=== PATIENT | female | born 1945 | race Caucasian/White ===

== ENCOUNTER 2024-03-25 09:22 | Emergency (ER) | payer MEDICARE, SELFPAY ==
[2024-03-25 09:29] VITALS: BP 134/89; PULSE 78; RESP 18; TEMP 36.9; O2SAT 96; BMI 21.9
--- NOTE | 2024-03-25 09:35 | ED_ITS ---
HPI - General Adult General Date Seen: 03/25/24 Chief complaint: Abdominal Pain Stated complaint: HAD KIDNEY STONE, HAVING SIMILAR SYMPTOMS Time Seen by Provider: 03/25/24 09:34 History of Present Illness HPI narrative: 78-year-old female with a history of breast cancer (lumpectomy 2014), hypertension, hyperlipidemia, hyperparathyroidism, thyroid nodule, GERD. Her medical record indicates that she is new to the [facility]. She had an appointment with Dr. Mayo last month to establish care and to discuss her intermittent, recurrent abdominal pain. She has a past medical history which includes a kidney stone which was removed by a urologist through the [facility] system about 2 or 3 years ago in 2019 or 2020. She apparently had a fairly large stone that would not pass and had multiple other smaller stones. She was told that her stones were calcium oxalate stones and that she should stick to a low oxalate diet to prevent forming new stones. she also notes that she had a large cyst on 1 of her kidneys for which her urologist did not recommend any intervention. I looked in [facility] through the [facility] link and there is no records from her [facility] To document the size or location of pollo stone. She notes that a few weeks ago she was having some upper abdominal pain in the central upper abdomen the felt probably like heartburn. For the past week or so she has had a different pain that is in the right flank and radiates around into the right side of her abdomen. The pain that is been coming and going for the past week is reminiscent of her previous kidney stone. She also notes that on Thursday she had an episode where she got very dizzy and presyncopal and almost fainted. This was not directly associated with a bad flare of pain. She was feeling a little bit weak on Thursday and yesterday on . Today she had another episode of weakness and other episode of pain. No clear pattern to the pain. It comes and goes. Here in the ER she says she is having minimal ongoing pain and does not need any pain medicine right now. She is not nauseous. No vomiting but she has had a bit of a poor appetite. No fever. Urination has been normal. She has been watching for hematuria and has not noticed any. No dysuria. Bowel movements normal. Related Data Home Medications ?Medication ?Instructions ?Recorded ?Confirmed cholecalciferol (vitamin D3) 25 25 mcg PO QDAY 03/01/24 03/25/24 mcg (1,000 unit) capsule lisinopril 5 mg tablet 5 mg PO QDAY 03/01/24 03/25/24 rosuvastatin 5 mg tablet 5 mg PO QDAY 03/01/24 03/25/24 omeprazole 20 mg capsule,delayed 20 mg PO DAILY 03/25/24 03/25/24 release Allergies Allergy/AdvReac Type Severity Reaction Status Date / Time Sulfa (Sulfonamide Allergy Severe Hives Verified 03/25/24 09:28 Antibiotics) [facility] Medical History (Updated 03/25/24 @ 11:57 by Guy Nieto MD) Osteoporosis ?M81.0 - Age-related osteoporosis without current pathological fracture (ICD- 10) GERD (gastroesophageal reflux disease) ?K21.9 - Gastro-esophageal reflux disease without esophagitis (ICD-10) Thyroid nodule ?E04.1 - Nontoxic single thyroid nodule (ICD-10) Hyperparathyroidism ?E21.3 - Hyperparathyroidism, unspecified (ICD-10) History of skin cancer ?Z85.828 - Personal history of other malignant neoplasm of skin (ICD-10) Migraines ?G43.909 - Migraine, unspecified, not intractable, without status migrainosus (ICD-10) Allergic rhinitis ?J30.9 - Allergic rhinitis, unspecified (ICD-10) Environmental allergies ?Z91.09 - Other allergy status, other than to drugs and biological substances (ICD-10) History of kidney stones ?Z87.442 - Personal history of urinary calculi (ICD-10) Mixed hyperlipidemia ?E78.2 - Mixed hyperlipidemia (ICD-10) Primary hypertension ?I10 - Essential (primary) hypertension (ICD-10) History of breast cancer ?Z85.3 - Personal history of malignant neoplasm of breast (ICD-10) Surgical History (Updated 03/14/24 @ 00:37 by Thuan Mayo MD) S/P ureteral stent placement ?Z96.0 - Presence of urogenital implants (ICD-10) History of lumpectomy ?Z98.890 - Other specified postprocedural states (ICD-10) Family History (Updated 03/14/24 @ 00:28 by Thuan Mayo MD) Mother Lung cancer Colon cancer Sister Pancreatic cancer Social History (Updated 03/14/24 @ 00:27 by Thuan Mayo MD) Narrative: , two kids, 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, nonsmoker, social ETOH What is your current living situation?: I presently have a place to live Problems where you live: no known problems In the past 12 months, utilities in danger of being shut off: no In the past 12 mos, have been you worried that your food would run out before you had money to buy more?: never true In the past 12 mos, the food you bought just didn't last and you didn't have money to buy more?: never true Smoking Status: Never smoker How often do you have a drink containing alcohol: never AUDIT-C Alcohol total score: 0 Non-prescribed substance use: denies use How often does anyone, including family, friends and others, physically hurt you : never How often does anyone, including family, friends and others, insult or talk down to you: never How often does anyone, including family, friends and others, threaten you with harm: never How often does anyone, including family, friends and others, scream or curse at you: never Exam Narrative: Exam Narrative: Constitutional: Appears well-developed and well-nourished. Alert. Conversant. Non toxic. HENT: Head: Atraumatic. Nose: Nose normal. Mouth/Throat: Oral mucosa is clear and moist. no trismus. Pharynx normal. Tonsils symmetric. No tonsillar enlargement, erythema, or exudate. Eyes: Conjunctivae normal. EOM normal. Pupils equal, round, and reactive to light. No scleral icterus. Neck: Normal range of motion. Neck supple. No tracheal deviation present. Cardiovascular: Normal rate, regular rhythm. No gallop. No friction rub. No murmur heard. Symmetric radial artery pulses Pulmonary/Chest: Effort normal. No stridor. No respiratory distress. No wheezes. No rales. No rhonchi . No tenderness. Abdominal: Soft. Bowel sounds normal. No distension. No mass. Mild right CVA tenderness. no anterior abdominal tenderness. No pulsatile mass. No rebound. No guarding. Musculoskeletal: RUE: Normal range of motion. No tenderness. No deformity LUE: Normal range of motion. No tenderness. No deformity RLE: Normal range of motion. No edema. No tenderness. No deformity LLE: Normal range of motion. No edema. No tenderness. No deformity Neurological: Alert and oriented to person, place, and time. Normal strength. CN II-VII intact. No sensory deficit. GCS eye subscore is 4. GCS verbal subscore is 5. GCS motor subscore is 6. Normal coordination Skin: Skin is warm and dry. No rash noted. No pallor. Normal capillary refill. Psychiatric: Normal mood. Normal affect. Const: Vital Signs, click to edit/add: Vital Signs - 24 hr 03/25/24 09:29 03/25/24 11:45 Temperature 98.4 F Pulse Rate 68 Pulse Rate [Pulse Oximeter] 78 Respiratory Rate 18 14 Blood Pressure 140/77 H Blood Pressure [Le ft Upper Arm] 134/89 Pulse Oximetry 96 98 Oxygen Delivery Me thod Room Air Course Course ED Course: Recheck-remained stable. Not much pain at the moment. Reevaluation(s) Reevaluation #1: Recheck-discussed further results with the patient and her . Discussed plan for outpatient follow-up. Vital Signs Vital signs: Initial Vital Signs Temperature 98.4 F 03/25/24 09:29 Temperature Source Temporal Artery Scan 03/25/24 09:29 Pulse Rate 78 03/25/24 09:29 Pulse Rhythm Regular 03/25/24 09:29 Respiratory Rate 18 03/25/24 09:29 Blood Pressure 134/89 03/25/24 09:29 Blood Pressure Mean 104 03/25/24 09:29 Blood Pressure Position Sitting 03/25/24 09:29 Pulse Oximetry 96 03/25/24 09:29 Oxygen Delivery Method Room Air 03/25/24 09:29 Vital Signs Temperature 98.4 F 03/25/24 09:29 Pulse Rate 78 03/25/24 09:29 Respiratory Rate 18 03/25/24 09:29 Blood Pressure 134/89 03/25/24 09:29 Pulse Oximetry 96 03/25/24 09:29 Oxygen Delivery Method Room Air 03/25/24 09:29 Temperature 98.4 F 03/25/24 09:29 Pulse Rate 68 03/25/24 11:45 Respiratory Rate 14 03/25/24 11:45 Blood Pressure 140/77 H 03/25/24 11:45 Pulse Oximetry 98 03/25/24 11:45 Oxygen Delivery Method Room Air 03/25/24 09:29 Medical Decision Making MDM Narrative Medical decision making narrative: This patient presents with right flank and abdominal pain off and on for several days and also some lightheadedness.. Differential Diagnosis considered includes: Ureterolithiasis, UTI, pyelonephritis, AAA, colitis, diverticulitis, volvulus, appendicitis, cholecystitis, right-sided colitis, obstruction, among others. At this point, the evaluation does not show any sign of obstructing kidney stone or hydronephrosis to explain patient's symptoms. There are no signs that this is a urinary infection. There is no visible gallstones on her CT scan and no signs of cholecystitis. LFTs and lipase and white count are normal. The patient's pain is minimal in ED, and she is politely declining offered pain meds. The p atient is hemodynamically stable in ED. I think the patient is safe for discharge. Radiology does mention a ?moderate stool burden? on the CT scan with a fair amount of stool in her right (ascending)colon. It is possible this could be a source for pain. She also does have a fairly large cyst on that right kidney. It was noted before. I do not have previous imaging available for measurement comparison but if it is enlarging it could be a source for pain. The plan is discharge to home with recheck by primary care physician or her urologist through the [facility] system within the next 5-7 days. She will start natural remedies for constipation. She typically can manage this with vegetables and high-fiber diet and does not want any medications. They will return to the ED right away if symptoms worsen (e.g Return immediately for fevers greater than 102, increasing pain, other new symptoms develop). Abdominal pain precautions for home. The patient's questions were answered. . Lab Data Labs: Lab Results 03/25/24 03/25/24 Range/Units 10:12 11:15 WBC 6.47 (4.50-11.00) K/uL RBC 5.62 H (4.00-5.20) m/uL Hgb 16.2 H (12.0-16.0) gm/dL Hct 49.7 (33.0-51.0) % MCV 88 (80-100) fL MCH 29 (26-34) pg MCHC 33 (32-36) gm/dL RDW Coeff of Cierra 13.8 (11.5-15.5) % Plt Count 212 (140-440) K/uL Neut % (Auto) 72.7 H (42.0-72.0) % Lymph % (Auto) 17.5 L (20-44) % [place] % (Auto) 7.9 (0.0-11.0) % Eos % (Auto) 0.9 (0.0-7.0) % Baso % (Auto) 0.8 (0.0-3.0) % Neut # (Auto) 4.70 (1.7-7.0) K/uL Lymph # (Auto) 1.10 (0.90-2.90) K/uL [place] # (Auto) 0.50 (0.00-0.90) K/UL Eos # (Auto) 0.06 (0.00-0.50) K/uL Baso # (Auto) 0.05 (0.00-0.30) K/uL Abs Immat Gran (auto) 0.01 (0.00-0.30) K/uL Imm/Tot Granulo (auto) 0.2 % Sodium 138 (135-149) mmol/L Potassium 4.2 (3.6-5.1) mmol/L Chloride 102 (96-114) mmol/L Carbon Dioxide 28 (20-32) mmol/L Anion Gap 8 (7-15) mEq/L BUN 20 (7-30) mg/dL Creatinine 1.1 (0.5-1.5) mg/dL Estimated Creat Clear 33.87 Estimated GFR 52 ml/min Glucose 86 (60-115) mg/dL Calcium 10.0 (8.4-10.6) mg/dL Total Bilirubin 0.7 (0.1-1.5) mg/dL AST 28 (12-35) U/L ALT 23 (4-35) U/L Alkaline Phosphatase 70 (40-150) U/L Total Protein 6.9 (6.0-8.3) g/dL Albumin 4.2 (3.3-5.0) g/dL Lipase 296 (23-300) U/L Urine Color Yellow (Yellow) Urine Appearance Clear (Clear) Urine pH 7.0 (5.0-8.5) Ur Specific [place] 1.020 (1.000-1.030) Urine Protein Negative (Negative) Urine Glucose (UA) Negative (Negative) Urine Ketones Negative (Negative) Urine Blood Trace-intact A (Negative) Urine Nitrite Negative (Negative) Urine Bilirubin Negative (Negative) Urine Urobilinogen 0.2 (0.2-1.0) Ur Leukocyte Esterase 1+ A (Negative) Urine RBC 0-2 (0-2) Urine WBC 2-5 (0-5) Ur Squamous Epith Cells Moderate A (None-Few) Urine Bacteria Few A (None) Imaging Data CT scan - abdomen: Attestation: I have reviewed the pertinent imaging results. Radiologist's impression: Impression: 1. 10.2 x 8.2 centimeter anterior right renal cyst. 1.6 centimeter left renal cyst. 2. No hydronephrosis. Bilateral nonobstructing renal calculi measuring up to 4 millimeter on the right and 3 millimeter on the left. 3. Moderate stool burden. Small hiatal hernia. No evidence of bowel obstruction. 4. Trace pericardial effusion. Discharge Plan Discharge Clinical Impression: Acute right flank pain, Cyst of right kidney, Acute constipation Patient Disposition: Home, Self-Care Condition: Stable Instructions: Constipation (DC), Abdominal Pain (ED), Kidney Cyst (ED) Additional Instructions: As we discussed, there is no signs of a kidney stone or a kidney infection causing her pain at this time. Do not see any sign of gallstones on her CT scan today. Your lab work is reassuring. The cause of your pain is not clear at this time. It is possible that the pain could be related to constipation. Please you sure normal remedies for helping manage constipation. Monitor bowel patterns and make sure having regular stools for the next several days. It is also possible that your pain is related to the large cyst on your right kidney. Please follow-up with your primary care provider within the next 1-3 days and your urologist through the [facility] system within the next 1-2 weeks to recheck. If you have any worsening symptoms such as worsening pain, nausea vomiting, fever, more lightheadedness, or any other problems, return to the emergency department immediately. Prescriptions: No Action lisinopril 5 mg tablet 5 mg PO QDAY rosuvastatin 5 mg tablet 5 mg PO QDAY cholecalciferol (vitamin D3) 25 mcg (1,000 unit) capsule 25 mcg PO QDAY omeprazole 20 mg capsule,delayed release(DR/EC) 20 mg PO DAILY Follow Up/Referrals: Provider,Not a Local [Primary Care Provider] - Stand Alone Forms: Vascular Therapies Info Instructions
--- NOTE | 2024-03-25 10:00 | CRLHL7_ITS ---
For Patients: As a result of the Century Cures Act, medical imaging exams and procedure reports are released immediately into your electronic medical record. You may view this report before your referring provider. If you have questions, please contact your health care provider. Indication: RIGHT FLANK PAIN PRIMARILY, BUT PAIN ALSO MOVES AROUND ABDOMEN Technique: Noncontrast CT of the abdomen and pelvis was obtained. Please note that all CT scans at this facility use dose modulation, iterative reconstruction, and/or weight-based dosing when appropriate to reduce radiation dose to as low as reasonably achievable. Comparison: None. Findings: Lower thorax: Trace pericardial effusion. Liver and biliary tree: Subcentimeter hypoattenuating lesions are too small to characterize and are favored to represent cysts. Gallbladder: Normal. Spleen: Normal noncontrast appearance. Pancreas: Normal noncontrast appearance. Adrenal glands: Normal noncontrast appearance. Kidneys and ureters: 10.2 x 8.2 centimeter anterior right renal cyst (2/53). 1.6 centimeter left renal cyst (2/44). No hydronephrosis. Bilateral nonobstructing renal calculi measuring up to 4 millimeter on the right (2/70) and 3 millimeter on the left (2/57). Gastrointestinal tract: Mild sigmoid colonic diverticulosis without CT evidence of acute diverticulitis. Moderate stool burden. No evidence of acute appendicitis. Small hiatal hernia. No evidence of bowel obstruction. Peritoneal cavity: Normal. Bladder: Normal. Pelvic organs: Normal. Vasculature: Moderate calcification. Lymph nodes: Normal. Abdominal wall: Normal. Musculoskeletal: Mild degenerative changes of the bilateral hips. Moderate degenerative changes of the visualized spine. Osteopenia. Impression: 1. 10.2 x 8.2 centimeter anterior right renal cyst. 1.6 centimeter left renal cyst. 2. No hydronephrosis. Bilateral nonobstructing renal calculi measuring up to 4 millimeter on the right and 3 millimeter on the left. 3. Moderate stool burden. Small hiatal hernia. No evidence of bowel obstruction. 4. Trace pericardial effusion. Please note that all CT scans at this facility use dose modulation, iterative reconstruction, and/or weight-based dosing when appropriate to reduce radiation dose to as low as reasonably achievable. Dictated by Emeka Singer MD @ 03/25/2024 11:00:28 AM (Electronically Signed)
[2024-03-25 10:25] LABS: Basophils Absolute Auto 0.05 K/uL (0.00-0.30); Basophils Percent Auto 0.8 % (0.0-3.0); Eosinophils Absolute Auto 0.06 K/uL (0.00-0.50); Eosinophils Percent Auto 0.9 % (0.0-7.0); Hematocrit 49.7 % (33.0-51.0); Hemoglobin* 16.2 gm/dL (12.0-16.0); Immature Granulocytes Abs Auto 0.01 K/uL (0.00-0.30); Immature Granulocytes Pct Auto 0.2 %; Lymphocytes Percent Auto 17.5 % (20-44); Mean Corpuscular HGB Conc 33 gm/dL (32-36); Mean Corpuscular Hemoglobin 29 pg (26-34); Mean Corpuscular Volume 88 fL (80-100); Monocytes Percent Auto 7.9 % (0.0-11.0); Neutrophils Percent Auto 72.7 % (42.0-72.0); Platelet Count* 212 K/uL (140-440); RDW Coefficient of Variation % 13.8 % (11.5-15.5); Red Blood Count 5.62 m/uL (4.00-5.20); White Blood Count* 6.47 K/uL (4.50-11.00)
[2024-03-25 10:27] LABS: Slide Review Reflex No
[2024-03-25 10:48] LABS: Albumin* 4.2 g/dL (3.3-5.0)
[2024-03-25 10:49] LABS: Chloride* 102 mmol/L (96-114); Potassium* 4.2 mmol/L (3.6-5.1); Sodium* 138 mmol/L (135-149)
[2024-03-25 10:51] LABS: Anion Gap 8 mEq/L (7-15); Aspartate Amino Transferase* 28 U/L (12-35); Bilirubin Total* 0.7 mg/dL (0.1-1.5); Carbon Dioxide* 28 mmol/L (20-32); Creatinine* 1.1 mg/dL (0.5-1.5); Est. Creatinine Clearance* 33.87; Estimated Glomerular Filt Rate 52 ml/min; Total Protein* 6.9 g/dL (6.0-8.3)
[2024-03-25 10:52] LABS: Alanine Aminotransferase* 23 U/L (4-35); Alkaline Phosphatase* 70 U/L (40-150); Blood Urea Nitrogen* 20 mg/dL (7-30); Glucose* 86 mg/dL (60-115); Lipase* 296 U/L (23-300)
[2024-03-25 11:29] LABS: Appearance Urine Clear (Clear); Bilirubin Urine Negative (Negative); Blood Urine Trace-intact (Negative); Color Urine Yellow (Yellow); Glucose Urine Negative (Negative); Ketones Urine Negative (Negative); Leukocyte Esterase Urine 1+ (Negative); Nitrite Urine Negative (Negative); Protein Urine Negative (Negative); Urobilinogen Urine 0.2 (0.2-1.0)
[2024-03-25 11:39] LABS: RBC Urine 0-2 (0-2)
[2024-03-25 11:40] LABS: Bacteria Urine Few; Squamous Epithelial Cell Urine Moderate (None-Few)
[2024-03-25 11:45] VITALS: BP 140/77; PULSE 68; RESP 14; O2SAT 98
[2024-03-25 12:25] VITALS: BP 134/89; PULSE 78; RESP 14; TEMP 36.9
== END 2024-03-25 12:22 | disposition home or self-care (01) ==
PROVIDERS: Emergency Provider Emergency Medicine
DX: N20.0 Calculus of kidney (principal); K59.00 Constipation, unspecified
CPT/HCPCS: 36415; 74176; 80053; 81001; 83690; 85025; 87086; 99283

== ENCOUNTER 2024-08-09 09:00 | Outpatient (CLI) | payer MEDICARE, SELFPAY ==
--- NOTE | 2024-08-09 09:15 | CRLHL7_ITS ---
For Patients: As a result of the Century Cures Act, medical imaging exams and procedure reports are released immediately into your electronic medical record. You may view this report before your referring provider. If you have questions, please contact your health care provider. BILATERAL DIGITAL SCREENING MAMMOGRAM WITH COMPUTER-AIDED DETECTION AND TOMOSYNTHESIS CLINICAL HISTORY: Routine screening exam. COMPARISON: None are available at the time of dictation TECHNIQUE: Digital mammogram in CC and MLO projections including computer-aided detection (CAD). Tomosynthesis was used in this interpretation. BREAST COMPOSITION: The breasts are heterogeneously dense, which may obscure small masses. FINDINGS: RIGHT Breast: Focal asymmetric density within the upper right breast 5 cm from the nipple MLO view only. Possible postop changes related to lumpectomy but no priors are available. LEFT Breast: No suspicious findings. IMPRESSION: RIGHT breast asymmetry/mass. RECOMMENDATIONS: Additional mammographic views of the RIGHT breast including 3D spot compression MLO, 3D true lateral along with 3D XCCL. RIGHT breast ultrasound may also be required. The [facility] will contact the patient. A lay language report of this examination will be provided to the patient. BI-RADS Category 0: Incomplete: Need Additional Imaging Evaluation Dictated by Thuan Valerio MD @ 08/19/2024 11:14:52 AM Dictated by: Thuan Valerio MD @ 08/19/2024 11:14:59 (Electronically Signed)
== END 2024-08-09 09:01 | disposition home or self-care (01) ==
LOC: MAMMO 09:01
PROVIDERS: PCP Internal Medicine; Visit Provider Internal Medicine
DX: Z12.31 Encounter for screening mammogram for malignant neoplasm of breast (principal); N63.10 Unspecified lump in the right breast, unspecified quadrant
CPT/HCPCS: 77063; 77067